=== PATIENT | male | born 1970 | race Caucasian/White ===

== ENCOUNTER 2016-04-26 15:45 | Day surgery (SDC) | payer OTHER ==
[~2016-04-26] VITALS: Ht 185.4 cm; Wt 129.9 kg
[~2016-04-26 15:45] MED LIST: NAPROSYN500 MG PO; PERCOCET 5/31 TABLET PO; PREDNISONE20 MG PO; VENTOLIN HFA18 GM IH; ZOFRAN ODT4 MG PO
[2016-04-26 16:28] LABS: HEMATOCRIT 43.8 % (38.0-50.0); MCH 30.2 PG (29.0-34.0); MCHC 33.1 G/DL (30.0-36.0); MCV 91.3 FL (86-99); MEAN PLAT.VOLUME 10.3 uM^3 (9.0-12.4); PLATELET COUNT 211 K/uL (156-360); RBC DIS.WIDTH-CV 13.2 % (11.8-14.6); WHITE BLOOD COUNT 10.3 K/uL (4.1-10.2)
[2016-04-26 16:36] LABS: CHLORIDE 108 mEq/L (99-109); SODIUM 141 mEq/L (136-147)
[2016-04-26 16:39] LABS: GLUCOSE 104 mg/dL (70-99)
[2016-04-26 16:40] LABS: ANION GAP 8 MEQ/L (2-14)
[2016-04-26 16:41] LABS: TOTAL BILIRUBIN 0.5 mg/dL (0.0-1.0)
[2016-04-26 16:42] LABS: ALKALINE PHOSPHATASE 72 IU/L (3-129); GFR ESTIMATE (CALCULATED) > 59 mL/min/
[2016-04-26 16:43] LABS: UREA NITROGEN (BUN) 17 mg/dL (9-23)
[2016-04-26 19:51] LABS: LIPASE 22 U/L (1.0-51.0)
[2016-04-26 19:58] LABS: BILIRUBIN NEGATIVE; BLOOD NEGATIVE; COLOR YELLOW ((YELLOW)); GLUCOSE (STRIP) NEGATIVE; KETONES 5; LEUKOCYTES NEGATIVE; NITRITE NEGATIVE; PROTEIN (STRIP) 30; SPECIFIC GRAVITY 1.035 (1.000-1.030); UROBILINOGEN 0.2 MG/DL (0.2-1.0)
[2016-04-26 20:02] LABS: ADD MIUA? NO; UCUL ADDED? NO
[2016-04-26] MEDS ORDERED: LOPID600 MG PO (21:13)
[2016-04-26] MEDS ORDERED: OMEGA 3-6-9 CO1 EACH PO (21:14)
[2016-04-26] MEDS ORDERED: DAILY VITE1 EAC1 PO (21:14)
[2016-04-27 06:53] LABS: HEMATOCRIT 40.2 % (38.0-50.0); MCH 30.7 PG (29.0-34.0); MCHC 33.3 G/DL (30.0-36.0); MCV 92.2 FL (86-99); MEAN PLAT.VOLUME 10.5 uM^3 (9.0-12.4); PLATELET COUNT 203 K/uL (156-360); RBC DIS.WIDTH-CV 13.4 % (11.8-14.6); RBC DIS.WIDTH-SD 46.3 % (39-53); RED BLOOD COUNT 4.36 M/uL (4.00-5.50)
[2016-04-27 07:28] LABS: ANION GAP 9 MEQ/L (2-14); CHLORIDE 105 MEQ/L (99-109); GFR ESTIMATE (CALCULATED) > 59 mL/min/; SAMPLE HEMOLYSIS CHECK 3; SAMPLE ICTERIC CHECK 0; SAMPLE LIPEMIA CHECK 0; SODIUM 136 MEQ/L (136-147); UREA NITROGEN (BUN) 16 mg/dL (9-23)
[2016-04-27 07:29] LABS: GLUCOSE 164 mg/dL (70-99); POTASSIUM 4.9 MEQ/L (3.7-5.4)
[2016-04-27 12:00] VITALS: BP 116/58
[2016-04-27] MEDS ORDERED: ENDOCET 5-3251 EACH PO (14:24)
[2016-04-27] MEDS ORDERED: COLACE100 MG PO (14:24)
[2016-04-27 16:11] VITALS: BP 103/54
[2016-04-27 19:20] VITALS: BP 130/67
== END 2016-04-27 20:03 | disposition home or self-care (01) ==
LOC: EXP 15:45 → EME 15:45 → EXP 21:07 → SDC 21:07 → 2SOUTH 23:14 → 2EASTP 23:14 → 2SOUTH 23:14 → 2EASTP 04-27 07:22
PROVIDERS: Thoracic Surgery (Cardiothoracic Vascular Surgery)
PROC: 0DTJ0ZZ Resection of Appendix, Open Approach (ICD-10-PCS; principal; 2016-04-26)
DX: K35.80 Unspecified acute appendicitis (principal); E78.5 Hyperlipidemia, unspecified; I10 Essential (primary) hypertension; F17.210 Nicotine dependence, cigarettes, uncomplicated
CPT/HCPCS: 74177; 80048; 80053; 81003; 83690; 85027; 88304; 99281; 99285; G0378; J0131; J0330; J1100; J1170; J1644; J1885; J2405; J2543; J2710; J3010; J7030; J7120

== ENCOUNTER 2016-05-05 13:40 | Inpatient (IN) | payer OTHER ==
[~2016-05-05] VITALS: Ht 182.9 cm; Wt 125.5 kg
[~2016-05-05 13:40] MED LIST changes: +COLACE100 MG PO; +DAILY VITE1 EAC1 PO; +ENDOCET 5-3251 EACH PO; +LOPID600 MG PO; +OMEGA 3-6-9 CO1 EACH PO
[2016-05-05 14:45] LABS: HEMATOCRIT 40.9 % (38.0-50.0); MCH 30.4 PG (29.0-34.0); MCHC 33.7 G/DL (30.0-36.0); MCV 90.1 FL (86-99); MEAN PLAT.VOLUME 9.3 uM^3 (9.0-12.4); RED BLOOD COUNT 4.54 M/uL (4.00-5.50); WHITE BLOOD COUNT 13.3 K/uL (4.1-10.2)
[2016-05-05 14:46] LABS: CHLORIDE 104 mEq/L (99-109); PLATELET COUNT 381 K/uL (156-360); SODIUM 136 mEq/L (136-147)
[2016-05-05 14:48] LABS: GLUCOSE 126 mg/dL (70-99)
[2016-05-05 14:49] LABS: ANION GAP 8 MEQ/L (2-14)
[2016-05-05 14:50] LABS: TOTAL BILIRUBIN 0.4 mg/dL (0.0-1.0)
[2016-05-05 14:52] LABS: ALKALINE PHOSPHATASE 76 IU/L (3-129); GFR ESTIMATE (CALCULATED) > 59 mL/min/
[2016-05-05 14:53] LABS: UREA NITROGEN (BUN) 11 mg/dL (9-23)
[2016-05-05 21:48] LABS: ADD MIUA? NO; BILIRUBIN NEGATIVE; BLOOD NEGATIVE; COLOR STRAW ((YELLOW)); GLUCOSE (STRIP) NEGATIVE; KETONES 5; LEUKOCYTES NEGATIVE; NITRITE NEGATIVE; PROTEIN (STRIP) NEGATIVE; SPECIFIC GRAVITY 1.041 (1.000-1.030); UROBILINOGEN 0.2 MG/DL (0.2-1.0)
[2016-05-05 22:54] VITALS: BP 136/74
[2016-05-06 06:02] LABS: BASOPHIL COUNT 0.1 K/uL (0-0.1); EOSINOPHIL COUNT 0.4 K/uL (0-0.3); HEMATOCRIT 36.7 % (38.0-50.0); IMMATURE GRANULOCYTE (%) 1.5 % (0.0-0.7); IMMATURE GRANULOCYTE COUNT 0.2 K/uL; INSTRUMENT ABS NEUTROPHIL CT 7.9 K/uL; LYMPHOCYTE COUNT 2.6 K/uL (1.0-2.8); MCH 29.9 PG (29.0-34.0); MCHC 32.4 G/DL (30.0-36.0); MCV 92.2 FL (86-99); MEAN PLAT.VOLUME 9.5 uM^3 (9.0-12.4); MONOCYTE (%) 10.5 % (3-12); MONOCYTE COUNT 1.3 K/uL (0-0.8); NEUTROPHIL (%) 63.5 % (45-76); NEUTROPHIL COUNT 7.9 K/uL (1.8-6.4); PLATELET COUNT 356 K/uL (156-360); RBC DIS.WIDTH-CV 13.2 % (11.8-14.6); RBC DIS.WIDTH-SD 44.9 % (39-53); RED BLOOD COUNT 3.98 M/uL (4.00-5.50); WHITE BLOOD COUNT 12.4 K/uL (4.1-10.2)
[2016-05-06 06:27] LABS: ANION GAP 8 MEQ/L (2-14); CHLORIDE 105 MEQ/L (99-109); GFR ESTIMATE (CALCULATED) > 59 mL/min/; POTASSIUM 4.7 MEQ/L (3.7-5.4); SAMPLE HEMOLYSIS CHECK 0; SAMPLE ICTERIC CHECK 0; SAMPLE LIPEMIA CHECK 0; SODIUM 140 MEQ/L (136-147); UREA NITROGEN (BUN) 9 mg/dL (9-23)
[2016-05-06 06:33] LABS: GLUCOSE 91 mg/dL (70-99)
[2016-05-06 08:15] VITALS: BP 155/87
[2016-05-06] MEDS ORDERED: AUGMENTIN875 MG PO (15:40)
[2016-05-06] MEDS ORDERED: FLORASTOR250 MG PO (15:40)
[2016-05-06] MEDS ORDERED: ENDOCET 5-3251 EACH PO (15:40)
[2016-05-06 16:00] VITALS: BP 143/85
== END 2016-05-06 18:30 | disposition home or self-care (01) | DRG 863 ==
LOC: EME 13:40 → EDOF 20:00 → 4SOUTH 20:00
PROVIDERS: Emergency Medicine; Physician Assistant; Thoracic Surgery (Cardiothoracic Vascular Surgery)
DX: T81.4XXA Infection following a procedure, initial encounter (principal); E78.5 Hyperlipidemia, unspecified; F17.200 Nicotine dependence, unspecified, uncomplicated; I95.9 Hypotension, unspecified; E86.0 Dehydration
CPT/HCPCS: 74177; 80048; 80053; 81003; 83605; 85025; 85027; 87040; 87070; 87075; 87076; 87186; 87205; 99281; 99285; J0696; J1650; J2250; J2543; J3010; J3370; J7030; J7050; J7120